=== PATIENT | male | born 1935 | race Caucasian/White ===

== ENCOUNTER 2025-01-20 08:18 | Outpatient (CLI) | payer OTHER ==
[2025-01-20] VITALS (9 sets, daily range): BP systolic 99–130; BP diastolic 61–80; PULSE 68–89; RESP 11–18; TEMP 97.9; O2SAT 96–100
[2025-01-20] MEDS: LIDOCAINE 2%HCL (LOCAL ANESTH.) INJ 10ml MDV ONE (09:12)
[2025-01-20] MEDS: fentaNYL CITRATE 100 MCG/2 ML VL IV ONE (09:15)
[2025-01-20] MEDS: MIDAZOLAM HCL 2MG/2ML 2ml VIAL (1mg/ml) IV ONE (09:15)
[2025-01-20] MEDS: GELATIN 1 SPONGE SIZE 50 TOP ONE (09:16)
[2025-01-20] MEDS: fentaNYL CITRATE 100 MCG/2 ML VL ONE (09:23)
[2025-01-20] MEDS: MIDAZOLAM HCL 2MG/2ML 2ml VIAL (1mg/ml) ONE (09:23)
--- NOTE | 2025-01-20 10:34 | DVH ---
Exam: CT ABDOMEN WITHOUT CONTRAST History: LIVER BX Comparison Study: None Technique: Multidetector spiral CT of the abdomen was performed from lung bases to iliac crest. Imag ing was performed without IV contrast. Axial, coronal and sagittal multiplanar reformats were obtain ed from the axial data set by the technologist. Radiation Dose : CTDI volume is 12.3 mGy. Dose-length product is 1564 mGy*cm Findings: Limited CT was performed of the abdomen prior to the CT biopsy of the liver, liver masses again noted . IMPRESSION: 1. Pre CT biopsy of the liver, liver masses noted again.
--- NOTE | 2025-01-20 10:34 | DVH ---
EXAM: CT CT GUIDED NEEDLEBIOPSY DATE OF SERVICE: 01/20/2025 09:35 AM ORDERING PHYSICIAN: SIGRID HARRISON REASON FOR EXAM: LIVER BX TECHNIQUE: Following standard prep and under CT guidance an 18 gauge core bioPince needle was advanc ed into the right lobe of the liver mass, 2 core biopsy specimens obtained. Gel-Foam was then inject ed. COMPARISON: None FINDINGS: CT core biopsy of the liver as above IMPRESSION: 1. CT core biopsy of the liver as above End of Report
== END 2025-01-20 17:00 | disposition home or self-care (01) ==
LOC: XYW 08:18
PROVIDERS: ATTEND Internal Medicine
DX: C22.1 Intrahepatic bile duct carcinoma (principal); C22.7 Other specified carcinomas of liver; Z79.01 Long term (current) use of anticoagulants
CPT/HCPCS: 47000; 74150; 77012; 88305; 88342; J2003; J2250; J3010; 10005